=== PATIENT | female | born 1990 | race Asian ===

== ENCOUNTER 2016-08-14 10:54 | Outpatient (CLI) | payer OTHER ==
--- NOTE | 2016-08-15 11:02 | Diagnostic Imaging Report ---
Indication: Shortness of breath and cough Technique: PA and lateral views of the chest. Findings: Comparison: None Thoracic spine demonstrates mild S-shaped scoliosis. Remaining bones and extra pulmonary soft tissues, cardiomediastinal silhouette, pulmonary vasculature and parenchyma, and pleural surfaces are unremarkable. IMPRESSION: Scoliosis Otherwise negative PA and lateral chest radiographs
== END 2016-08-14 12:24 | disposition home or self-care (01) ==
LOC: RAD 10:54
DX: R05 Cough (principal); R06.02 Shortness of breath; M41.9 Scoliosis, unspecified
CPT/HCPCS: 71020